=== PATIENT | female | born 1970 | race Caucasian/White ===

== ENCOUNTER 2025-03-04 07:16 | Day surgery (SDC) | payer BC ==
[~2025-03-04] VITALS: Ht 157.5 cm; Wt 62.2 kg
[2025-03-04] MEDS ORDERED: DULOXETINE HCL100 GM (07:49)
[2025-03-04] MEDS ORDERED: SUBOXONE 8 MG-1 EACH (07:49)
[2025-03-04] MEDS ORDERED: LOSA50 (07:50)
[2025-03-04] MEDS ORDERED: METO50 (07:50)
[2025-03-04] MEDS ORDERED: AMLOATOR (07:50)
[2025-03-04 10:36] VITALS: BP 128/97
== END 2025-03-04 10:44 | disposition home or self-care (01) ==
LOC: ORSCSDS 07:16
PROVIDERS: Surgery
PROC: 0DBP8ZX Excision of Rectum, Via Natural or Artificial Opening Endoscopic, Diagnostic (ICD-10-PCS; principal; 2025-03-04 09:45)
DX: Z12.11 Encounter for screening for malignant neoplasm of colon (principal); K62.1 Rectal polyp; I10 Essential (primary) hypertension; F17.210 Nicotine dependence, cigarettes, uncomplicated; Z79.82 Long term (current) use of aspirin; Z79.899 Other long term (current) drug therapy
CPT/HCPCS: 88305; J2704; J7120